=== PATIENT | female | born 1940 | race Caucasian/White ===

== ENCOUNTER 2018-12-04 17:08 | Inpatient (IN) | payer OTHER ==
[~2018-12-04] VITALS: Ht 152.4 cm; Wt 71.7 kg
[2018-12-04 18:24] VITALS: BP 129/73
[2018-12-04 18:25] VITALS: BP 141/76
--- NOTE | 2018-12-04 19:03 | NUR ---
78 YO FEMALE DIRECTLY ADMITTED FROM 'S OFFICE. A&OX4, REPORTS WEAKNESS AND DIZZINESS. DR. HOPPER'S OFFICE NOTIFIED OF ARRIVAL. BRUISES NOTED TO LOWER EXTREMITIES AND BILAT ARMS. DAUGHTER AT BEDSIDE. ORIENTED PT TO ROOM/ CALL LIGHT.
[2018-12-04 19:19] VITALS: BP 131/70
[2018-12-04] MEDS ORDERED: RESTORIL30 MG PO (20:28)
[2018-12-04] MEDS ORDERED: REMERON15 MG PO (20:28)
[2018-12-04] MEDS ORDERED: XANAX 0.5 MG0.5 MG PO (20:29)
--- NOTE | 2018-12-04 21:00 | NUR ---
TALKED TO DR. DIAZ DURING THE NIGHT ABOUT PT BEING A DIRECT ADMIT WITHOUT ORDERS. ORDERS RECIEVED AND IMPLEMENTED. PT NIGHT MEDS REORDERED. INFORMED DR. DIAZ ABOUT PT REFUSING TO GET AN IV AFTER EDUCATION. WILL CONTINUE TO MONITOR.
[2018-12-04 23:31] LABS: HEMATOCRIT 38.4 % (37.0-47.0); HEMOGLOBIN 12.2 gm/dL (12.0-15.0); MCH 26.9 pg (26.0-34.0); MCHC 31.9 g/dL (28.0-37.0); MCV 84.5 fL (80.0-100.0); RBC 4.54 mil/uL (4.20-5.00); RDW 14.5 % (10.5-14.5); WBC 7.6 thou/uL (4.0-11.0)
[2018-12-04 23:56] LABS: ALBUMIN 3.3 g/dL (3.4-5.0); CALCIUM 9.4 mg/dL (8.5-10.1); CREATININE 0.9 mg/dL (0.6-1.0); POTASSIUM 4.2 mmol/L (3.5-5.1); TOTAL BILIRUBIN 0.4 mg/dL (<0.1-1.0)
[2018-12-05 02:33] LABS: URINE BILIRUBIN NEGATIVE (Negative); URINE BLOOD NEGATIVE (Negative); URINE CLARITY CLEAR; URINE COLOR YELLOW; URINE GLUCOSE-RANDOM* NEGATIVE (Negative); URINE KETONES NEGATIVE (Negative); URINE LEUKOCYTES-REFLEX NEGATIVE (Negative); URINE NITRITE-REFLEX NEGATIVE (Negative); URINE PROTEIN (DIPSTICK) NEGATIVE (Negative); URINE SPECIFIC GRAVITY <= 1.005 (1.005-1.035); URINE UROBILINOGEN 0.2 E.U./dl (0.2-1.0)
[2018-12-05 03:54] VITALS: BP 135/70
[2018-12-05 07:42] VITALS: BP 129/83
[2018-12-05 14:09] VITALS: BP 129/83
[2018-12-05 14:25] VITALS: BP 129/83
--- NOTE | 2018-12-05 14:33 | NUR ---
Case opened to follow for dc planning. Corrosion Control Technician visited with the pt at bedside. She is a&ox4 and reports that her son Moreno is currently living with her. He works during the daytime and is there at night. She has a flight of steps up to her second level bedroom and is normally able to do them using the handrails. She does have a cane and a FWW at home if needed from a stroke two years ago. She has been to [facility] for outpt therapy several times since her stroke. She is hoping to go back there at dc as she is feeling weak and has had a fall recently. HH and SNF options reviewed. Therapy evals are pending. She prefers outpt therapy vs hh or snf. She notes her dtr Elissa to be her dpoa if needed. She reports being indep normally with good support. Will follow along should dc needs arise.
--- NOTE | 2018-12-05 14:56 | NUR ---
DC ORDERS RECIEVED. IV REMOVED FROM R UA. DC INSTRUCTIOS AND F/U APPOINTMENT REVIEWED. VOLUNTEER ESCORTED PT TO MAIN ENTRANCE.
--- NOTE | 2018-12-07 13:15 | D ---
[facility] [place] [address] DISCHARGE SUMMARY Name: LAURIE CAMPBELL Room #: 439-P [facility] IN M.R.#: [id number] Admission: 12/04/18 Attend Phys: Stacy Lira Discharge: 12/05/18 Date of : 38 Report #: [id number] THIS REPORT FOR: //name// CC: Sean Meier DATE OF SERVICE: 12/05/2018 SHORT-STAY SUMMARY FINAL DIAGNOSES: Cirrhosis. HOSPITAL COURSE: The patient was admitted from the office with concerns of ongoing infection. Last week, she had an outpatient lab work revealing a white count of 16,000. She has had some general weakness over the last few days. She just finished a course of oral antibiotics for UTI related to Pseudomonas. Admission studies revealed a normal white blood cell count and chemistry that was fairly unremarkable other than some elevated transaminase levels that are known to her history of hepatitis C. PAST MEDICAL HISTORY: Hypertension, hep C, hypothyroidism, chronic insomnia. PAST SURGICAL HISTORY: None. FAMILY HISTORY: Noncontributory. SOCIAL HISTORY: She lives at home. No chronic alcohol or tobacco use. ALLERGIES: Please see the list. MEDICATIONS: See her home list. REVIEW OF SYSTEMS: She denied productive cough, shortness of breath, sinus congestion, nausea, vomiting, diarrhea, fever, chills, chest pain. OBJECTIVE: VITAL SIGNS: Temperature 36.6, pulse 61, respirations 17, blood pressure 129/83. LUNGS: Clear. HEART: Regular. ABDOMEN: Soft, normoactive bowel sounds. EXTREMITIES: No edema. NEUROLOGIC: Intact. HOSPITAL COURSE: As mentioned, admission lab data was fairly unremarkable and her urinalysis was negative. She was afebrile. A CT of the abdomen and pelvis was obtained, which showed cirrhosis and nodular contour with hepatic steatosis, [facility] [address] [place] [address] DISCHARGE SUMMARY Name: LAURIE CAMPBELL Room #: 439-P [facility] IN ..#: [id number] Admission: 12/04/18 Attend Phys: Stacy Lira Discharge: 12/05/18 Date of : 38 Report #: [id number] some mild ascites, otherwise is fairly unremarkable. This is a known finding given her history of hepatitis C. She was able to eat with no difficulty and walk in her room. She was eager for early home discharge. She already has a course of outpatient physical therapy underway. DISPOSITION: She will be discharged to home to resume all usual medications, diet and activities. She can resume her outpatient physical therapy. Follow up with Dr. Meier in 1 week and she will notify if any fever or new symptoms of infection arise. <ELECTRONICALLY SIGNED> By: Gerardo Sharp MD 12/07/18 [id number] Gerardo Sharp MD /nt
== END 2018-12-05 15:10 | disposition home or self-care (01) | DRG 433 ==
LOC: 4S 17:08 → ENTRNSPT 12-05 14:43 → EDTRNSPTSTS 12-05 14:46 → 4S 12-05 15:10
PROVIDERS: Internal Medicine Geriatric Medicine; ADMIT Internal Medicine
DX: K74.60 Unspecified cirrhosis of liver (principal); R18.8 Other ascites; I10 Essential (primary) hypertension; E03.9 Hypothyroidism, unspecified; B19.20 Unspecified viral hepatitis C without hepatic coma; K76.0 Fatty (change of) liver, not elsewhere classified; Z79.899 Other long term (current) drug therapy
CPT/HCPCS: 10102

== ENCOUNTER → 2020-04-13 | Outpatient (CLI) | payer OTHER ==
[~2020-04-13] MED LIST: REMERON15 MG PO; RESTORIL30 MG PO; XANAX 0.5 MG0.5 MG PO
== END ==
LOC: HYPER 13:28
PROVIDERS: ATTEND Emergency Medicine
DX: S81.812A Laceration without foreign body, left lower leg, initial encounter (principal); S61.411A Laceration without foreign body of right hand, initial encounter; S80.12XA Contusion of left lower leg, initial encounter; L03.116 Cellulitis of left lower limb; R60.0 Localized edema; E03.9 Hypothyroidism, unspecified; I63.9 Cerebral infarction, unspecified; I10 Essential (primary) hypertension; K74.60 Unspecified cirrhosis of liver; F41.9 Anxiety disorder, unspecified; F32.9 Major depressive disorder, single episode, unspecified; Z79.82 Long term (current) use of aspirin; Z87.891 Personal history of nicotine dependence; Z90.710 Acquired absence of both cervix and uterus; Z96.652 Presence of left artificial knee joint; W19.XXXA Unspecified fall, initial encounter; Y93.89 Activity, other specified; Y92.89 Other specified places as the place of occurrence of the external cause; Y99.8 Other external cause status

== ENCOUNTER → 2020-04-20 | Outpatient (CLI) | payer OTHER | LOC: HYPER 14:20 | PROVIDERS: ATTEND Emergency Medicine | DX: S81.812D Laceration without foreign body, left lower leg, subsequent encounter (principal); S61.411D Laceration without foreign body of right hand, subsequent encounter; S80.12XD Contusion of left lower leg, subsequent encounter; L03.116 Cellulitis of left lower limb; R60.0 Localized edema; E03.9 Hypothyroidism, unspecified; I63.9 Cerebral infarction, unspecified; I10 Essential (primary) hypertension; K74.60 Unspecified cirrhosis of liver; F41.9 Anxiety disorder, unspecified; F32.9 Major depressive disorder, single episode, unspecified; Z79.82 Long term (current) use of aspirin; Z87.891 Personal history of nicotine dependence; W19.XXXD Unspecified fall, subsequent encounter ==

== ENCOUNTER → 2020-04-27 | Outpatient (CLI) | payer OTHER | LOC: HYPER 13:12 | PROVIDERS: ATTEND Emergency Medicine | DX: S81.812D Laceration without foreign body, left lower leg, subsequent encounter (principal); S61.411D Laceration without foreign body of right hand, subsequent encounter; S80.12XD Contusion of left lower leg, subsequent encounter; L03.116 Cellulitis of left lower limb; L84 Corns and callosities; R60.0 Localized edema; E03.9 Hypothyroidism, unspecified; I63.9 Cerebral infarction, unspecified; I10 Essential (primary) hypertension; K74.60 Unspecified cirrhosis of liver; F41.9 Anxiety disorder, unspecified; F32.9 Major depressive disorder, single episode, unspecified; Z79.82 Long term (current) use of aspirin; Z87.891 Personal history of nicotine dependence; W19.XXXD Unspecified fall, subsequent encounter ==

== ENCOUNTER → 2020-05-25 | Outpatient (CLI) | payer OTHER | LOC: HYPER 09:05 | PROVIDERS: ATTEND Emergency Medicine | DX: S81.812D Laceration without foreign body, left lower leg, subsequent encounter (principal); S61.411D Laceration without foreign body of right hand, subsequent encounter; S80.12XD Contusion of left lower leg, subsequent encounter; L03.116 Cellulitis of left lower limb; L84 Corns and callosities; R60.0 Localized edema; E03.9 Hypothyroidism, unspecified; I63.9 Cerebral infarction, unspecified; I10 Essential (primary) hypertension; K74.60 Unspecified cirrhosis of liver; F41.9 Anxiety disorder, unspecified; F32.9 Major depressive disorder, single episode, unspecified; Z79.82 Long term (current) use of aspirin; Z87.891 Personal history of nicotine dependence; W19.XXXD Unspecified fall, subsequent encounter ==

== ENCOUNTER → 2020-06-17 | Outpatient (CLI) | payer OTHER | LOC: HYPER 11:50 | PROVIDERS: ATTEND Emergency Medicine | DX: S81.812D Laceration without foreign body, left lower leg, subsequent encounter (principal); S61.411D Laceration without foreign body of right hand, subsequent encounter; S80.12XD Contusion of left lower leg, subsequent encounter; L03.116 Cellulitis of left lower limb; L84 Corns and callosities; R60.0 Localized edema; E03.9 Hypothyroidism, unspecified; I63.9 Cerebral infarction, unspecified; I10 Essential (primary) hypertension; K74.60 Unspecified cirrhosis of liver; F41.9 Anxiety disorder, unspecified; F32.9 Major depressive disorder, single episode, unspecified; Z79.82 Long term (current) use of aspirin; Z87.891 Personal history of nicotine dependence; W19.XXXD Unspecified fall, subsequent encounter ==

== ENCOUNTER → 2020-07-20 | Outpatient (CLI) | payer OTHER | LOC: HYPER 14:21 | PROVIDERS: ATTEND Emergency Medicine | DX: S81.812D Laceration without foreign body, left lower leg, subsequent encounter (principal); S61.411D Laceration without foreign body of right hand, subsequent encounter; S80.12XD Contusion of left lower leg, subsequent encounter; L03.116 Cellulitis of left lower limb; R60.0 Localized edema; I63.9 Cerebral infarction, unspecified; E03.9 Hypothyroidism, unspecified; I10 Essential (primary) hypertension; F41.9 Anxiety disorder, unspecified; F32.9 Major depressive disorder, single episode, unspecified; Z79.82 Long term (current) use of aspirin; Z87.891 Personal history of nicotine dependence; Z79.899 Other long term (current) drug therapy; Z90.11 Acquired absence of right breast and nipple; X58.XXXD Exposure to other specified factors, subsequent encounter ==